=== PATIENT | male | born 1975 | race Caucasian/White ===

== ENCOUNTER 2017-05-10 15:24 | Emergency (ER) | payer OTHER ==
[2017-05-10 15:32] VITALS: BP 142/74; PULSE 75; RESP 18; TEMP 97.5; O2SAT 98
--- NOTE | 2017-05-10 16:04 | EDPHY ---
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 He applied pressure and it stopped. He is concerned that there may be a piece of metal in his arm. His last tetanus booster was 2-3 years ago. Right-hand dominant. Modifying Factors: Comment: ROS: see HPI Constitutional: No fever, no chills, no weight loss Eyes: No blurred vision Respiratory: No shortness of breath, no cough Cardiovascular: No chest pain Gastrointestinal: No nausea, no vomiting no diarrhea Genitourinary: No dysuria Extremities: No myalgias Neurologic: No weakness, no numbness Skin: No rashes Hematologic: No bruising, no bleeding MEDICAL/SURGICAL/SOCIAL HISTORY: Medical history: Generally healthy. Does not take any regular medications. Surgical history: Denies Social history: Employed CONSTITUTIONAL: awake and alert, no obvious distress HEENT: Atraumatic and normocephalic, PERRL, EOMI. Tympanic membranes clear. Oropharynx clear, no exudate and moist pink mucosa. Airway patent. No lymphadenopathy. No meningismus. Cardiovascular: Normal S1/S2, regular rate, regular rhythm, without murmur rub or gallop. PULMONARY/CHEST: Symmetrical and nontender. Clear to auscultation bilaterally. Good air movement. No accessory muscle usage. ABDOMEN: Soft, nondistended, nontender, no rebound, no guarding, no peritoneal signs, no masses or organomegaly. No CVAT. EXTREMITIES: 2/2 pulses, right the inferior upper arm 2 cm horizontal laceration; no active bleeding; no tendon palpable; elbow has full range of motion of flexion and extension. Can wiggle all 5 fingers and light touch sensation is intact. no deformities, no clubbing, no cyanosis or edema. NEUROLOGICAL: no focal neuro deficits. GCS 15. SKIN: Warm and dry, no erythema. no rash. Good capillary refill. Source: Patient Exam Limitations: No limitations - Personal History Current Tetanus/Diphtheria Vaccine: Yes - Medical/Surgical History Hx Asthma: No Hx Chronic Respiratory Disease: No Hx Diabetes: No Hx Cardiac Disease: No Hx Renal Disease: No Hx Cirrhosis: No Hx Alcoholism: No Hx HIV/AIDS: No Hx Splenectomy or Spleen Trauma: No Other PMH: denies - Social History Smoking Status: Current every day smoker Constitutional: Initial Vital Signs Temperature (C) 36.4 C 05/10/17 15:30 Heart Rate 75 05/10/17 15:30 Respiratory Rate 18 05/10/17 15:30 Blood Pressure 142/74 H 05/10/17 15:30 O2 Sat (%) 98 05/10/17 15:30 O2 Delivery Mode Room Air Allergies/Adverse Reactions: No Known Allergies Allergy (Unverified 05/10/17 15:29) Home Medications: Medication Instructions Recorded Cephalexin [Keflex (*)] 500 mg PO TID #21 cap 05/10/17 Medical Decision Making - Diagnostics Imaging Results: Imaging Impressions Elbow X-Ray 05/10/17 16:07 Impression: Radiopaque foreign object overlying the medial soft tissues. Humerus X-Ray 05/10/17 16:07 Impression: Radiopaque foreign object at the medial aspect of the distal upper arm. Procedures: Procedure: Laceration repair. Verbal consent was obtained from the patient. The 2 cm superficial horizontal laceration overlying the right bicep was anesthetized in the usual fashion. The wound was irrigated, draped and explored to its base with a gloved finger. There were no deep structures involved. No tendon injury was identified. The wound was repaired with #2, 6 0 Prolene in simple interrupted pattern. Good hemostasis was achieved and patient tolerated procedure well. The procedure was performed by myself. ED Course/Re-evaluation: Tetanus up-to-date. X-ray ordered to evaluate for foreign body. Area cleaned and copiously irrigated. X-rays do not show any fracture dislocation do show small metal piece located in the biceps belly. Foreign body was unable to be removed; given p.o. Keflex Laceration repaired with 2 nonabsorbable sutures and clean sterile dressing placed. No signs of neurovascular compromise/tenting of skin/compartment syndrome/ extremities and joints examined above and below area of concern and are neurovascularly intact. Differential Diagnosis: Differential diagnosis includes laceration, contusion, foreign body, nerve injury, ligament injury. Departure - Departure Disposition: Home, Routine, Self-Care Clinical Impression: Foreign body of upper arm, right, superficial Qualifiers: Encounter type: initial encounter Qualified Code(s): S40.851A - Superficial foreign body of right upper arm, initial encounter Laceration of right upper arm without complication Qualifiers: Encounter type: initial encounter Qualified Code(s): S41.111A - Laceration without foreign body of right upper arm, initial encounter Condition: Good Instructions: Soft Tissue Foreign Body (ED), Laceration (ED) Additional Instructions: Keep the dressing in place for 48 hours. After 48 hours, you may remove the dressing; wash the site daily with mild soap and water; then pat dry. Take ibuprofen 600-800 mg every 6-8 hours with food as needed for pain and inflammation. Apply ice for 30 minutes at a time; 2-3 times per day for the next 1-2 days. The laceration was repaired with nonabsorbable sutures; they will need to be removed in 7-10 days. You may return to the emergency room to have this procedure performed. Please take all antibiotics as directed. Follow up with Orthopedics in 5-7 days at which time they will re-evaluate you. The x-rays obtained in the emergency department today demonstrate no evidence of an obvious fracture. Sometimes fractures are not obvious on the initial set of x-rays performed in the ED. For this reason, you should have repeat x-rays performed in 7-10 days if you are having any pain exclude the possibility of an occult fracture. Referrals: Scar Schmid MD [Medical Doctor] - As per Instructions Prescriptions: Cephalexin [Keflex (*)] 500 mg PO TID #21 cap
[2017-05-10] MEDS ORDERED: CEPHALEXIN 500 MG CAP PO ONE (17:15)
== END 2017-05-10 17:44 | disposition home or self-care (01) ==
PROC: 0HQBXZZ Repair Right Upper Arm Skin, External Approach (ICD-10-PCS; principal; 2017-05-10)
DX: S41.121A Laceration with foreign body of right upper arm, initial encounter (principal); F17.200 Nicotine dependence, unspecified, uncomplicated; W45.8XXA Other foreign body or object entering through skin, initial encounter; Y92.69 Other specified industrial and construction area as the place of occurrence of the external cause; Y99.8 Other external cause status; Y93.89 Activity, other specified